=== PATIENT | female | born 1960 | race Caucasian/White ===

== ENCOUNTER 2020-12-06 19:42 | Emergency (ER) | payer OTHER ==
[~2020-12-06] VITALS: Ht 165.1 cm; Wt 63.5 kg
[2020-12-06] MEDS ORDERED: HYDROMORPHONE 1 MG/1 ML DISP.SYRIN IV ONE (20:00)
[2020-12-06] MEDS ORDERED: ONDANSETRON 4 MG/2 ML VIAL IV ONE (20:00)
[2020-12-06] MEDS ORDERED: IV NORMAL SALINE 500 ML BAG IV ONE (20:00)
[2020-12-06] MEDS ORDERED: IV NORMAL SALINE 250 ML IV ONE (20:03)
[2020-12-06] MEDS ORDERED: SWABABLE VALVE TRANSFER SET EA MC ONE (20:03)
[2020-12-06] MEDS ORDERED: IOHEXOL 300MG/ML 100 ML INFUS..BTL ONE (20:03)
[2020-12-06] MEDS ORDERED: IOHEXOL 350 100 ML INFUS..BTL ONE (20:17)
[2020-12-06] MEDS ORDERED: ONDANSETRON 4 MG/2 ML VIAL ONE (20:21)
[2020-12-06] MEDS ORDERED: HYDROMORPHONE 1 MG/1 ML DISP.SYRIN ONE (20:21)
[2020-12-06 20:26] LABS: HEMATOCRIT 41.8 % (31.2-41.9); MEAN CORPUSCULAR HEMOGLOBIN 29.6 uug (24.7-32.8); MEAN CORPUSCULAR VOLUME 86.1 fL (75.5-95.3); PLATELET COUNT (AUTO) 260 K/uL (179-408)
[2020-12-06 20:34] LABS: CREATININE 0.9 mg/dL (0.6-1.3)
[2020-12-06 20:43] LABS: BILIRUBIN,DIRECT 0.1 mg/dL (0.0-0.2); BILIRUBIN,TOTAL 0.4 mg/dL (0.2-1.0); TOTAL PROTEIN, SERUM 8.2 g/dL (6.4-8.2)
[2020-12-06] MEDS ORDERED: ONDA4TAB5 PO (22:29)
[2020-12-06] MEDS ORDERED: HYDR-3980 PO (22:29)
[2020-12-06 22:32] LABS: *BILIRUBIN,URIN NEGATIVE (NEGATIVE); *BLOOD, URINE 2+ (NEGATIVE); *CLARITY,URINE CLEAR (CLEAR); *COLOR,URINE YELLOW (YELLOW); *KETONES,URINE 2+ (NEGATIVE); *UROBILINOGEN,URINE 0.2 E.U./dl (NORMAL); LEUKOCYTE ESTERASE ,URINE NEGATIVE (NEGATIVE); NITRITE, URINE NEGATIVE (NEGATIVE); PH,URINE 7.5 (5.0-8.0); UGLUCOSE NEGATIVE (NEGATIVE)
[2020-12-06 22:39] LABS: BACTERIA,URINE NONE SEEN /HPF (NONE SEEN); SQUAMOUS EPITHELIAL CELL,UR FEW /HPF (NONE SEEN); WBC,URINE NONE SEEN /HPF (0-3)
--- NOTE | 2020-12-06 22:42 | NUR ---
IV removed. Catheter intact and site benign. Pressure and 4x4 gauze applied to site. No bleeding noted.
--- NOTE | 2020-12-06 22:45 | NUR ---
Patient discharged to home in stable condition with daughter taking patient home. Written and verbal after care instructions given. Patient verbalizes understanding of instructions. Stressed follow up or return to ER for worsening s/s.
[2020-12-06 22:50] VITALS: BP 145/82
== END 2020-12-06 22:51 | disposition home or self-care (01) ==
LOC: ER 19:42
DX: N13.2 Hydronephrosis with renal and ureteral calculous obstruction (principal); Z90.49 Acquired absence of other specified parts of digestive tract; Z90.710 Acquired absence of both cervix and uterus; Z87.442 Personal history of urinary calculi; F17.210 Nicotine dependence, cigarettes, uncomplicated; R03.0 Elevated blood-pressure reading, without diagnosis of hypertension
CPT/HCPCS: 36415; 71045; 74174; 80048; 80076; 81001; 83690; 84484; 85025; 85730; 93005; 96361; 96374; 96375; 99285; J1170; J2405; Q9967; 70030-TC; J7040; J7050